=== PATIENT | male | born 1970 | race Caucasian/White ===

== ENCOUNTER 2024-10-11 13:17 | Observation (INO) | payer MEDICARE ==
--- NOTE | 2024-10-11 14:44 | ED ---
General Adult HPI - General Chief complaint: Recheck/Abnormal Lab/Rx Stated complaint: ETOH/Seizures Time Seen by Provider: 10/11/24 14:04 Source: patient, RN notes reviewed, old records reviewed Mode of arrival: EMS Limitations: no limitations - History of Present Illness Initial comments: 54 yo-year-old male history of alcohol abuse and remote history of alcohol withdrawal seizure presents from [facility] for evaluation. Patient is been sober for the past 13 hours. Patient was sent in with concern for alcohol withdrawal and known history of HIV requiring medical clearance for rehabilitation. Patient states he has been off HIV medication and has had nondetectable viral load. He follows with infectious disease in the [facility]. - Related Data Allergies Allergy/AdvReac Type Severity Reaction Status Date / Time No Known Allergies Allergy Verified 10/11/24 13:37 Review of Systems ROS Statement: Those systems with pertinent positive or pertinent negative responses have been documented in the HPI. ROS Other: All systems not noted in ROS Statement are negative. Past Medical History Additional Past Medical History / Comment(s): HIV, Hep B History of Any Multi-Drug Resistant Organisms: None Reported Past Surgical History: No Surgical Hx Reported Past Psychological History: Anxiety Smoking Status: Current every day smoker Past Alcohol Use History: Daily, Heavy Past Drug Use History: Marijuana General Exam Limitations: no limitations General appearance: alert, anxious Head exam: Present: atraumatic, normocephalic Eye exam: Present: PERRL ENT exam: Present: normal exam Neck exam: Present: normal inspection, tenderness. Absent: meningismus Respiratory exam: Present: normal lung sounds bilaterally. Absent: respiratory distress, wheezes Cardiovascular Exam: Present: normal rhythm, tachycardia GI/Abdominal exam: Present: soft. Absent: distended, tenderness, guarding Extremities exam: Present: normal inspection, normal capillary refill Neurological exam: Present: alert, oriented X3, CN II-XII intact. Absent: motor sensory deficit Psychiatric exam: Present: anxious Skin exam: Present: warm, dry, intact Course Vital Signs 10/11/24 13:33 Temperature 99.8 F H Pulse Rate 109 H Respiratory 20 Rate Blood Pressure 133/79 O2 Sat by Pulse 97 Oximetry Medical Decision Making - Medical Decision Making Was pt. sent in by a medical professional or institution (, PA, SCOURER, urgent care, hospital, or [facility]...) When possible be specific @ -No Did you speak to anyone other than the patient for history (EMS, parent, family, police, friend...)? What history was obtained from this source @ -No Did you review nursing and triage notes (agree or disagree)? Why? @ -I reviewed and agree with nursing and triage notes Were old charts reviewed (outside hosp., previous admission, EMS record, old EKG, old radiological studies, urgent care reports/EKG's, [facility] records)? Report findings @ -No old charts were reviewed Differential Diagnosis alcohol withdrawal seizure, delirium tremens EKG interpreted by me (3pts min.). @ -[Sinus tachycardia rate of 102, W[place] interval 152, QRS duration 90, QTc [address] segment elevation. X-rays interpreted by me (1pt min.). @ -None done CT interpreted by me (1pt min.). @ -None done U/S interpreted by me (1pt. min.). @ -None done What testing was considered but not performed or refused? (CT, X-rays, U/S, labs)? Why? @ -None What meds were considered but not given or refused? Why? @ -None Did you discuss the management of the patient with other professionals (professionals i.e. , PA, SCOURER, lab, RT, psych nurse, side door worker, family life counselor, teacher, corporate banking officer, caser)? Give summary @EMH Was smoking cessation discussed for >3mins.? @ -No Was critical care preformed (if so, how long)? @ -No Were there social determinants of health that impacted care today? How? (Homelessness, low income, unemployed, alcoholism, drug addiction, transportation, low edu. Level, literacy, decrease access to med. care, residential, rehab)? @ -No Was there de-escalation of care discussed even if they declined (Discuss DNR or withdrawal of care, Hospice)? DNR status @ -No What co-morbidities impacted this encounter? (DM, HTN, Smoking, COPD, CAD, Cancer, CVA, ARF, Chemo, Hep., AIDS, mental health diagnosis, sleep apnea, morbid obesity)? @Alcohol abuse, HIV Was patient admitted / discharged? Hospital course, mention meds given and route, prescriptions, significant lab abnormalities, going to OR and other pe rtinent info. @ -54-year-old male presenting with alcohol withdrawal remote history of alcohol withdrawal seizure. Patient is tremulous, tachycardic and hypertensive upon arrival. Patient started on a CIWA scale given Ativan in the emergency department. Patient had been seen at [facility] and sent to the emergency department with history of seizure and history of HIV. Patient states that they required evaluation by infectious disease to clear him for rehab. I did place consult to infectious disease for evaluation. Undiagnosed new problem with uncertain prognosis? @ -No Drug Therapy requiring intensive monitoring for toxicity (Heparin, Nitro, Insulin, Cardizem)? @ -No Were any procedures done? @ -No Diagnosis/symptom? @ -[Alcohol withdrawal Acute, or Chronic, or Acute on Chronic? @ -Acute Uncomplicated (without systemic symptoms) or Complicated (systemic symptoms)? @ -[default Side effects of treatment? @ -No Exacerbation, Progression, or Severe Exacerbation? @ -No Poses a threat to life or bodily function? How? (Chest pain, USA, OR, pneumonia, PE, COPD, DKA, ARF, appy, cholecystitis, CVA, Diverticulitis, Homicidal, Suicidal, threat to staff... and all critical care pts) @Yes, alcohol withdrawal, delirium tremens, seizure - Lab Data Result diagrams: 10/11/24 14:42 10/11/24 14:42 Lab Results 10/11/24 10/11/24 Range/Units 14:42 14:42 WBC 2.83 L (4.50-10.00) 10*3/uL RBC 4.45 (4.40-5.60) 10*6/uL Hgb 13.3 (13.0-17.0) g/dL Hct 38.3 L (39.6-50.0) % MCV 86.1 (80.0-97.0) fL MCH 29.9 (27.0-32.0) pg MCHC 34.7 (32.0-37.0) g/dL Plt Count 193 (140-440) 10*3/uL MPV 8.9 L (9.5-12.2) fL Immature Gran % (Auto) 0.7 % Neutrophils % 47.0 % Lymphocytes % 41.3 % Monocytes % 8.8 % Eosinophils % 0.4 % Basophils % 1.8 % Immature Gran # 0.02 (0.00-0.04) 10*3/uL Neutrophils # 1.33 L (1.80-7.70) 10*3/uL Lymphocytes # 1.17 (0.90-5.00) 10*3/uL Monocytes # 0.25 (0.20-1.00) 10*3/uL Eosinophils # 0.01 L (0.04-0.35) 10*3/uL Basophils # 0.05 (0.00-0.10) 10*3/uL Sodium 137 (137-145) mmol/L Potassium 4.4 (3.5-5.1) mmol/L Chloride 97 L (98-107) mmol/L Carbon Dioxide 25 (22-30) mmol/L Anion Gap 15 mmol/L BUN 13 (9-20) mg/dL Creatinine 0.49 L (0.66-1.25) mg/dL Est GFR (CKD-EPI)AfAm >90 (>60 ml/min/1.73 sqM) Est GFR (CKD-EPI)NonAf >90 (>60 ml/min/1.73 sqM) Glucose 91 (74-99) mg/dL Calcium 8.7 (8.4-10.2) mg/dL Magnesium 1.6 (1.6-2.3) mg/dL Total Bilirubin 0.6 (0.2-1.3) mg/dL AST 68 H (17-59) U/L ALT 46 (4-49) U/L Alkaline Phosphatase 98 (38-126) U/L Total Protein 7.5 (6.3-8.2) g/dL Albumin 4.3 (3.5-5.0) g/dL Disposition Clinical Impression: Alcohol withdrawal Disposition: ADMITTED IP TO THIS HOSP Condition: Stable Is patient prescribed a controlled substance at d/c from ED?: No Referrals: None,Stated [Primary Care Provider] - 1-2 days Time of Disposition: 15:32
[2024-10-11] MEDS: SODIUM CHLORIDE 0.9% 1,000 ML IV ONE (14:46)
[2024-10-11] MEDS: LORazepam 1 MG/0.5 ML VIAL IV STA (14:48)
[2024-10-11 14:49] LABS: Basophils # (A) 0.05 10*3/uL (0.00-0.10); Basophils % (A) 1.8 %; Eosinophils # (A) 0.01 10*3/uL (0.04-0.35); Eosinophils % (A) 0.4 %; HCT 38.3 % (39.6-50.0); HGB 13.3 g/dL (13.0-17.0); Lymphocytes # (A) 1.17 10*3/uL (0.90-5.00); Lymphocytes % (A) 41.3 %; MCH 29.9 pg (27.0-32.0); MCHC 34.7 g/dL (32.0-37.0); MCV 86.1 fL (80.0-97.0); Monocytes # (A) 0.25 10*3/uL (0.20-1.00); Monocytes % (A) 8.8 %; Neutrophils # (A) 1.33 10*3/uL (1.80-7.70); Neutrophils % (A) 47.0 %; Platelet Count 193 10*3/uL (140-440); RBC 4.45 10*6/uL (4.40-5.60); RDW 14.6 % (11.5-14.5); WBC 2.83 10*3/uL (4.50-10.00)
[2024-10-11 15:17] LABS: ALT 46 U/L (4-49); AST 68 U/L (17-59); African American GFR (CKD) >90 (>60 ml/min/1.73 sqM); Albumin 4.3 g/dL (3.5-5.0); Alkaline Phosphatase 98 U/L (38-126); Anion Gap 15 mmol/L; Blood Urea Nitrogen 13 mg/dL (9-20); Calcium 8.7 mg/dL (8.4-10.2); Carbon Dioxide 25 mmol/L (22-30); Chloride 97 mmol/L (98-107); Glucose 91 mg/dL (74-99); Magnesium 1.6 mg/dL (1.6-2.3); Non-African American GFR(CKD) >90 (>60 ml/min/1.73 sqM); Potassium 4.4 mmol/L (3.5-5.1); Sodium 137 mmol/L (137-145); Total Protein 7.5 g/dL (6.3-8.2)
[2024-10-11] MEDS ORDERED: NALOXONE 0.4 MG/ML 1 ML VIAL IV PRN (15:24)
[2024-10-11] MEDS: LORazepam 1 MG/0.5 ML VIAL IV PRN ×2 (15:43→19:59)
[2024-10-11] MEDS: SODIUM CHLORIDE 0.9% 1,000 ML IV SCH (15:45)
[2024-10-11] MEDS ORDERED: ONDANSETRON 4 MG/2 ML VIAL IVP PRN (19:44)
[2024-10-11] MEDS: NICOTINE 21MG/24HR PATCH TRANSDERM SCH (19:59)
[2024-10-11] MEDS: PANTOPRAZOLE 40 MG/10 ML VIAL IVP SCH (19:59)
--- NOTE | 2024-10-11 23:56 | P.CONS ---
History of Present Illness - Reason for Consult Consult date: 10/11/24 HIV clearance for rehab Requesting physician: David Chua - Chief Complaint Alcoholism/alcohol withdrawal x 1 day - History of Present Illness Patient is a 54-year-old male with a past medical history significant for HIV hepatitis B anxiety current everyday smoker as well as heavy drinker patient did have a history of HIV for many years and the patient has been on Biktarvy however the patient mentioned has not been taking it for the last 3 months as he seemed to have problems with his insurance and the patient mention he was not remembering to take his medication on a daily basis patient presented to [facility] for alcohol rehabilitation after being evaluated that facility patient was sent to [facility] to be evaluated for HIV and to make sure the patient is cleared for inpatient rehabilitation for his alcoholism patient currently denies having any fever or any chills but denies any headache or URI symptoms no chest pain shortness of breath or cough no nausea no vomiting no abdominal pain or any diarrhea on presentation the hospital he did have a low-grade fever of 99.884 white patient was mild tachycardic but not hypotensive or hypoxic patient did have a white count of 2.83 creatinine 0.49 electrolytes has been normal AST is elevated rest of the liver enzymes are normal patient has been admitted to hospital infectious disease was consulted regarding his HIV and clearance to go back to the [facility] for alcohol rehabilitation Review of Systems Positive point and negatives has been mentioned in the HPI, complete review of systems was performed and all other systems are negative Past Medical History Additional Past Medical History / Comment(s): HIV, Hep B History of Any Multi-Drug Resistant Organisms: None Reported Past Surgical History: No Surgical Hx Reported Past Psychological History: Anxiety Smoking Status: Current every day smoker Past Alcohol Use History: Daily, Heavy Past Drug Use History: Marijuana Medications and Allergies Home Medications Medication Instructions Recorded Confirmed Type No Known Home Medications 10/11/24 10/11/24 History Allergies Allergy/AdvReac Type Severity Reaction Status Date / Time No Known Allergies Allergy Verified 10/11/24 15:35 Physical Exam Vitals: Vital Signs Temp Pulse Resp BP Pulse Ox 10/11/24 15:42 98 20 130/86 98 10/11/24 13:33 99.8 F H 109 H 20 133/79 97 Intake and Output 10/11/24 10/11/2425 06:59 14:59 22:59 Other: Weight 65.771 kg GENERAL DESCRIPTION: Middle aged male lying in bed, no distress. No tachypnea or accessory muscle of respiration use. HEENT: Shows Pallor , no scleral icterus. Oral mucous membrane is dry. NECK: Trachea central, no thyromegaly. LUNGS: Unlabored breathing. Clear to auscultation anteriorly. No wheeze or crackle. HEART: S1, S2, regular rate and rhythm. No loud murmur ABDOMEN: Soft, no tenderness , guarding or rigidity, no organomegaly EXTREMITIES: No edema of feet. SKIN: No rash, no masses palpable. NEUROLOGICAL: The patient is awake, alert, oriented x3, mood and affect normal. Results CBC & Chem 7: 10/11/24 14:42 10/11/24 14:42 Labs: Abnormal Lab Results - Last 24 Hours (Table) 10/11/24 10/11/24 Range/Units 14:42 14:42 WBC 2.83 L (4.50-10.00) 10*3/uL Hct 38.3 L (39.6-50.0) % MPV 8.9 L (9.5-12.2) fL Neutrophils # 1.33 L (1.80-7.70) 10*3/uL Eosinophils # 0.01 L (0.04-0.35) 10*3/uL Chloride 97 L (98-107) mmol/L Creatinine 0.49 L (0.66-1.25) mg/dL AST 68 H (17-59) U/L Assessment and Plan (1) HIV disease Current Visit: Yes Status: Acute Code(s): B20 - HUMAN IMMUNODEFICIENCY VIRUS [HIV] DISEASE SNOMED Code(s): 45951916 (2) Noncompliance with medication regimen Current Visit: Yes Status: Acute Code(s): Z91.148 - PATIENT'S OTHER NONCOMPL WITH MEDS REGIMEN FOR OTHER REASON SNOMED Code(s): 259730537 Plan: 1patient is a 54-year-old male who did have history of HIV for many years and the patient has been on Biktarvy mention his last viral load was not d etected his CD4 count was 600 but that has been 6 months ago and the patient not been taking his medication for the last 3 months because of his alcoholism and keep on forgetting to take his medication now being sent from the rehab for clearance to continue with rehab and this patient being admitted there for alcohol withdrawal syndrome 2-patient did have a low-grade fever and tachycardia on admission for which we will check a chest x-ray and check CRP procalcitonin as well as influenza and RSV/COVID PCR if this workup is negative no further fever patient will be able to go back to the rehab for rehabilitation 3-we will also check a CD4 count and viral load however will not suggest starting the treatment until the patient is done with rehabilitation and has establish care back with his HIV physician We will follow on clinical condition and cultures to further adjust medication if needed Thank you for this consultation we will follow the patient along with you Dictation was produced using [employer] dictation software. please excuse any grammatical, word or spelling errors. Time with Patient: Greater than 30
[2024-10-12 02:31] VITALS: RESP 17
[2024-10-12 08:12] VITALS: BP 154/86; PULSE 83; TEMP 98
--- NOTE | 2024-10-12 08:28 | XR ---
EXAMINATION TYPE: XR chest 1V portable DATE OF EXAM: 10/12/2024 COMPARISON: None CLINICAL INDICATION: Male, 54 years old with history of HIV; TECHNIQUE: Single frontal view of the chest is obtained. FINDINGS: There is no focal air space opacity, pleural effusion, or pneumothorax seen. The cardiac silhouette size is within normal limits. The osseous structures are intact. IMPRESSION: No acute process. [facility], Workstation: MAXIM 10/12/2024 8:26 AM
[2024-10-12 08:41] LABS: Basophils # (A) 0.03 X 10*3/uL (0.00-0.10); Basophils % (A) 0.9 %; Eosinophils # (A) 0.13 X 10*3/uL (0.04-0.35); Eosinophils % (A) 3.9 %; HCT 35.2 % (39.6-50.0); HGB 11.6 g/dL (13.0-17.0); Immature Grans, Automated 0.60 %; Lymphocytes # (A) 1.22 X 10*3/uL (0.90-5.00); Lymphocytes % (A) 36.5 %; MCH 28.6 pg (27.0-32.0); MCHC 33.0 g/dL (32.0-37.0); MCV 86.7 FL (80.0-97.0); Monocytes # (A) 0.34 X 10*3/uL (0.20-1.00); Monocytes % (A) 10.2 %; NRBC Per 100 WBC 0 X 10*3/uL (0.00-0.01); Neutrophils # (A) 1.60 X 10*3/uL (1.80-7.70); Neutrophils % (A) 47.9 %; Platelet Count 176 X 10*3/uL (140-440); RBC 4.06 X 10*6/uL (4.40-5.60); RDW 14.6 % (11.5-14.5); WBC 3.34 X 10*3/uL (4.50-10.00)
[2024-10-12] MEDS: LORazepam 1 MG/0.5 ML VIAL IV PRN (10:16)
[2024-10-12] MEDS: THIAMINE 100 MG TAB PO SCH (10:16)
[2024-10-12 11:13] LABS: ALT 34 U/L (10-49); AST 49 U/L (14-35); Albumin 3.4 g/dL (3.8-4.9); Albumin/Globulin Ratio 1.36 Ratio (1.60-3.17); Alkaline Phosphatase 82 U/L (41-126); Anion Gap 12.90 mmol/L (4.00-12.00); BUN/Creat Ratio 16.67 Ratio (12.00-20.00); Blood Urea Nitrogen 10.0 mg/dL (9.0-27.0); Calcium 8.1 mg/dL (8.7-10.3); Carbon Dioxide 24.1 mmol/L (21.6-31.8); Chloride 99 mmol/L (96-109); Globulin 2.5 g/dL (1.6-3.3); Glucose 93 mg/dL (70-110); Potassium 4.3 mmol/L (3.5-5.5); Sodium 136 mmol/L (135-145); Total Protein 5.9 g/dL (6.2-8.2)
[2024-10-12 12:48] LABS: T Helper Cell (CD4) 440 cell/ul (443-1471); T Helper Cell (CD4) % 35 % (35-66); T Suppressor Cell (CD8) 541 cell/ul (190-832); T Suppressor Cell (CD8) % 43 % (9-37); T4/T8 Ratio (CD4:CD8) 0.8 (1.0-3.7)
--- NOTE | 2024-10-12 13:06 | P.HPIM ---
History of Present Illness Chief Complaint: HIV clearance for rehab History of present illness; 54-year-old male with significant past medical history of HIV, alcohol abuse and Suboxone dependence. Patient sent from [facility] for HIV clearance, patient has been off HIV medication for the last couple months on a vacation HIV doctor aware. Last drink was 48 hours ago previously he was drinking 1.2 L of liquor per day, patient reports feeling jittery but improved after 2 mg of Ativan IV. In the ER patient received chest x-ray and EKG both negative for acute pathology. He was admitted for management of alcohol dependence and clearance by ID consult Labs: WBC 3.34 Hgb 11.6 Plt 176 NA 137 K4.4 BUN 13 CR 0.49 Pro-Gregory 0.06 REVIEW OF SYSTEMS: As stated above in HPI. The rest of the 14-point review of systems is negative. PHYSICAL EXAMINATION: GENERAL: The patient is alert and oriented x3, not in any acute distress. Well developed, well nourished. HEENT: Pupils are round and equally reacting to light. EOMI. No scleral icterus. No conjunctival pallor. Normocephalic, atraumatic. CARDIOVASCULAR: S1 and S2 present. No murmurs, rubs, or gallops. PULMONARY: Chest is clear to auscultation b/l, no wheezing or crackles. ABDOMEN: Soft, nontender, nondistended, normoactive bowel sounds. No palpable organomegaly. MUSCULOSKELETAL: No joint swelling or deformity. EXTREMITIES: No cyanosis, clubbing, or pedal edema. NEUROLOGICAL: Gross neurological examination did not reveal any focal deficits. SKIN: No rashes. Assessment and Plan #Alcohol withdrawal CIWA protocol -Last CIWA was 16 -Patient received 3 mg of Ativan today - Seizure precautions #HIV: Long history, recently on medication holiday, here for ID eval - ID on consult for clearance - CD4/CD8, HIV RNA, -CRP, UA, quad screen DVT ppx: Ambulation GI ppx: Protonix CODE STATUS: Full code Dispo: Pending ID clearance Lefty Padilla DO PGY1 Dictation was produced using [employer] dictation software. please excuse any grammatical, word or spelling errors. Past Medical History Additional Past Medical History / Comment(s): HIV, Hep B History of Any Multi-Drug Resistant Organisms: None Reported Past Surgical History: No Surgical Hx Reported Past Psychological History: Anxiety Smoking Status: Current every day smoker Past Alcohol Use History: Daily, Heavy Past Drug Use History: Marijuana Medications and Allergies Home Medications Medication Instructions Recorded Confirmed Type No Known Home Medications 10/11/24 10/11/24 History Allergies Allergy/AdvReac Type Severity Reaction Status Date / Time No Known Allergies Allergy Verified 10/11/24 15:35 Physical Exam Vitals: Vital Signs Temp Pulse Pulse Resp BP BP Pulse Ox 10/12/24 07:40 83 17 10/12/24 07:10 98 F 83 17 154/86 96 10/12/24 01:17 98.0 F 82 17 113/66 95 10/11/24 19:34 82 17 10/11/24 19:12 98.0 F 98 18 141/78 95 10/11/24 18:37 98.5 F 100 20 126/92 98 10/11/24 15:42 98 20 130/86 98 10/11/24 13:33 99.8 F H 109 H 20 133/79 97 Intake and Output 10/11/24 10/12/24 10/12/24 22:59 06:59 14:59 Other: Voiding Method Toilet Toilet # Voids 3 Weight 65.771 kg Results CBC & Chem 7: 10/12/24 02:59 10/12/24 02:59 Labs: Abnormal Lab Results - Last 24 Hours (Table) 10/11/24 10/11/24 10/12/24 Range/Units 14:42 14:42 02:59 WBC 2.83 L 3.34 L (4.50-10.00) 10*3/uL RBC 4.06 L (4.40-5.60) X 10*6/uL Hgb 11.6 L (13.0-17.0) g/dL Hct 38.3 L 35.2 L (39.6-50.0) % RDW 14.6 H (11.5-14.5) % MPV 8.9 L 9.2 L (9.5-12.2) fL Neutrophils # 1.33 L 1.60 L (1.80-7.70) 10*3/uL Eosinophils # 0.01 L (0.04-0.35) 10*3/uL Chloride 97 L (98-107) mmol/L Creatinine 0.49 L (0.66-1.25) mg/dL AST 68 H (17-59) U/L Thrombosis Risk Factor Assmnt - Choose All That Apply Each Factor Represents 1 point: Age 41-60 years Other Risk Factors: No Other congenital or acquired thrombophilia - If yes, enter type in comment: No Thrombosis Risk Factor Assessment Total Risk Factor Score: 1 Thrombosis Risk Factor Assessment Level: Low Risk
--- NOTE | 2024-10-12 13:07 | P.DS ---
Providers Date of admission: 10/11/24 15:27 Attending physician: Lamin Arellano MD Consults: 10/11/24 15:24 Consult Physician Routine Consulting Provider: Lionel Webb Consult Reason/Comments: history of HIV, needs clearance for rehab Do you want consulting provider notified?: Yes Primary care physician: Stated None Hospital Course: Discharge Diagnosis: HIV Alcohol use disorder Suboxone dependence Hospital Course: 54-year-old male with significant past medical history of alcohol use disorder HIV presents for ID evaluation for [facility] admission. Patient has been sober for the last 48 hours previously drinking 1.2 L of vodka per day. States that he was previously taking an medication vacation, his primary care physician is aware of this. In the ER received chest x-ray and EKG both returned negative for acute pathology. While admitted he was seen and evaluated by ID and managed with CIWA protocol (total of 5 g of Ativan over the course of admission), he was evaluated for acute infection all test returned negative. HIV maintenance testing within normal limits. At time of discharge patient is hemodynamically stable and cleared to return to [facility] for rehabilitation. Pt seen and examined at bedside: Plans on going to discharge, seen by ID, withdrawal symptoms well controlled at this time Vital signs reveiwed and stable: General: non toxic, no distress, appears at stated age, normal weight Derm: no unusual rashes/lesions, warm Head: atraumatic, normocephalic, symmetric Eyes: EOMI, no lid lag, anicteric sclera, pupils equal round reactive to light ENT: Nose and ears atraumatic Neck: No cervical lymphadenopathy, trachea midline, supple Mouth: no lip lesion, mucus membranes moist Cardiovascular: S1S2 reg, no murmur, positive dorsalis pedis pulse bilateral, no edema Lungs: Decreased air entry bilaterally, no rhonchi, no rales, no accessory muscle use Abdominal: soft, nontender to palpation, no guarding Ext: muscle strength 5 out of 5 in all 4 extremities grossly, no gross muscle atrophy, no contractures, Neuro: CN II-XI grossly intact, no gross focal neuro deficits Psych: Alert, oriented, appropriate affect A total of 30 minutes were spent preparing this complex discarge summary. Patient was discharged on 10/12/24. Dr. Kristy MD I have performed a history and physical examination and medical decision making of this patient, discussed the same with the dictator, and agree with the dictators assessment and plan as written, documented as a scribe. Based on total visit time, I have performed more than 50% of this visit. Patient Condition at Discharge: Stable Plan - Discharge Summary Discharge Rx Participant: No New Discharge Prescriptions: No Action No Known Home Medications Discharge Medication List No Known Home Medications 10/11/24 [History] Follow up Appointment(s)/Referral(s): Ramu Ernandez III, MD [STAFF PHYSICIAN] - 1 Week Patient Instructions/Handouts: Alcohol Use Disorder (DC) Discharge Disposition: OTHER INSTITUTION NOT DEFINED
[2024-10-12] MEDS: LORazepam 1 MG TAB PO STA (14:37)
--- NOTE | 2024-10-12 15:12 | P.PN ---
Subjective Progress Note Date: 10/12/24 Principal diagnosis: Reason for follow-up is HIV Patient is a 54-year-old male with a past medical history significant for HIV hepatitis B anxiety current everyday smoker as well as heavy drinker patient did have a history of HIV for many years and the patient has been on Biktarvy however the patient mentioned has not been taking it for the last 3 months has been sent from [facility] for clearance for rehab as for his HIV. On today's evaluation that is 10/13/2023, patient did have a temperature of 98 F this morning and denies having any chills, patient is on room air and breathing comfortably no chest pain or cough, the patient did not have any nausea vomiting abdominal pain or any diarrhea patient mention feeling better and wishes to go to the rehab. Patient white count is 3.34 creatinine 0.6 CD4 count is 440 CRP less than 0.30 Objective - Vital Signs Vital signs: Vital Signs Temp 98 F 10/12/24 07:10 Pulse 83 10/12/24 07:40 Resp 17 10/12/24 07:40 BP 154/86 10/12/24 07:10 Pulse Ox 96 10/12/24 07:10 FiO2 Intake & Output 10/11/24 10/12/24 10/12/24 18:59 06:59 18:59 Weight 65.771 kg Other: Voiding Method Toilet Toilet # Voids 3 - Exam GENERAL DESCRIPTION: Middle-age male lying in bed in no distress RESPIRATORY SYSTEM: Unlabored breathing , decreased breath sounds at bases HEART: S1 S2 regular rate and rhythm , ABDOMEN: Soft , no tenderness EXTREMITIES: No edema feet - Labs CBC & Chem 7: 10/12/24 02:59 10/12/24 02:59 Labs: Abnormal Lab Results - Last 24 Hours (Table) 10/11/24 10/11/24 10/12/24 Range/Units 14:42 14:42 02:59 WBC 2.83 L 3.34 L (4.50-10.00) 10*3/uL RBC 4.06 L (4.40-5.60) X 10*6/uL Hgb 11.6 L (13.0-17.0) g/dL Hct 38.3 L 35.2 L (39.6-50.0) % RDW 14.6 H (11.5-14.5) % MPV 8.9 L 9.2 L (9.5-12.2) fL Neutrophils # 1.33 L 1.60 L (1.80-7.70) 10*3/uL Eosinophils # 0.01 L (0.04-0.35) 10*3/uL Chloride 97 L (98-107) mmol/L Anion Gap (4.00-12.00) mmol/L Creatinine 0.49 L (0.66-1.25) mg/dL Calcium (8.7-10.3) mg/dL AST 68 H (17-59) U/L Total Protein (6.2-8.2) g/dL Albumin (3.8-4.9) g/dL Albumin/Globulin Ratio (1.60-3.17) Ratio 10/12/24 Range/Units 02:59 WBC (4.50-10.00) 10*3/uL RBC (4.40-5.60) X 10*6/uL Hgb (13.0-17.0) g/dL Hct (39.6-50.0) % RDW (11.5-14.5) % MPV (9.5-12.2) fL Neutrophils # (1.80-7.70) 10*3/uL Eosinophils # (0.04-0.35) 10*3/uL Chloride (98-107) mmol/L Anion Gap 12.90 H (4.00-12.00) mmol/L Creatinine (0.66-1.25) mg/dL Calcium 8.1 L (8.7-10.3) mg/dL AST 49 H (17-59) U/L Total Protein 5.9 L (6.2-8.2) g/dL Albumin 3.4 L (3.8-4.9) g/dL Albumin/Globulin Ratio 1.36 L (1.60-3.17) Ratio Assessment and Plan (1) HIV disease Current Visit: Yes Status: Acute Code(s): B20 - HUMAN IMMUNODEFICIENCY VIRUS [HIV] DISEASE SNOMED Code(s): 79710794 (2) Noncompliance with medication regimen Current Visit: Yes Status: Acute Code(s): Z91.148 - PATIENT'S OTHER NONCOMPL WITH MEDS REGIMEN FOR OTHER REASON SNOMED Code(s): 336523101 Plan: 1patient is a 54-year-old male who did have history of HIV for many years and the patient has been on Biktarvy mention his last viral load was not detected his CD4 count was 600 but that has been 6 months ago and the patient n ot been taking his medication for the last 3 months because of his alcoholism and keep on forgetting to take his medication now being sent from the rehab for clearance to continue with rehab and this patient being admitted there for alcohol withdrawal syndrome 2-patient did have negative chest x-ray CRP is normal CD4 count is 440, there is no contra indication for patient to go to the drug rehabilitation and will need to follow-up with his ID physician for possible genotype and may be considerat ion for [place] if no resistance multiple question answered Dictation was produced using [employer] dictation software. please excuse any grammatical, word or spelling errors. Time with Patient: Less than 30
[2024-10-14 11:42] LABS: HIV-1 RNA DETECTED (Not detected)
== END 2024-10-12 15:37 | disposition other institution (70) ==
LOC: EC 13:17 → 4SSUR 15:27
PROVIDERS: ADMIT Internal Medicine; ATTEND Internal Medicine
DX: F10.239 Alcohol dependence with withdrawal, unspecified (principal); F41.9 Anxiety disorder, unspecified; B20 Human immunodeficiency virus [HIV] disease; Z91.148 Patient's other noncompliance with medication regimen for other reason; F11.20 Opioid dependence, uncomplicated; F17.200 Nicotine dependence, unspecified, uncomplicated
CPT/HCPCS: 96376 ×3; 96374 ×2; 96375; 96361; 99285; 36415; 93005; 87535; 80053 ×2; 86360; 83735; 85025 ×2; 86140; 84145; 71045; G0378 ×2; S4990; J2060 ×2; J2470

== ENCOUNTER 2024-10-13 12:11 | Emergency (ER) | payer MEDICARE ==
--- NOTE | 2024-10-13 12:58 | ED ---
General Adult HPI - General Stated complaint: ETOH Time Seen by Provider: 10/13/24 12:20 Source: patient, RN notes reviewed Limitations: no limitations - History of Present Illness Initial comments: Patient is a 54-year-old male present to the emergency department with concerns with alcohol intoxication. Patient states he does drink a lot. Patient states he may have drank in 2 of 1/5 s of alcohol today. Patient has no complaints otherwise. Patient admits to being drowsy. Patient denies any injury. No suicidal ideation. - Related Data Previous Rx's Medication Instructions Recorded chlordiazePOXIDE HCl [Librium] See Taper PO TID 3 Days #12 capsule 10/12/24 chlordiazePOXIDE HCl [Librium] See Taper PO TID 3 Days #9 capsule 10/12/24 Allergies Allergy/AdvReac Type Severity Reaction Status Date / Time No Known Allergies Allergy Verified 10/13/24 13:09 Review of Systems ROS Statement: Those systems with pertinent positive or pertinent negative responses have been documented in the HPI. ROS Other: All systems not noted in ROS Statement are negative. Constitutional: Denies: fever Eyes: Denies: eye pain Cardiovascular: Denies: chest pain Gastrointestinal: Denies: abdominal pain Past Medical History Additional Past Medical History / Comment(s): HIV, Hep B History of Any Multi-Drug Resistant Organisms: None Reported Past Surgical History: No Surgical Hx Reported Past Psychological History: Anxiety Smoking Status: Current every day smoker Past Alcohol Use History: Daily, Heavy Past Drug Use History: Marijuana General Exam Limitations: no limitations General appearance: in no apparent distress, other (Sleeping but arousable to voice) Head exam: Present: atraumatic Eye exam: Present: normal appearance, PERRL ENT exam: Present: normal oropharynx Neck exam: Absent: tenderness Respiratory exam: Present: normal lung sounds bilaterally Cardiovascular Exam: Present: regular rate, normal rhythm GI/Abdominal exam: Present: soft. Absent: tenderness Extremities exam: Present: normal inspection, full ROM. Absent: tenderness Neurological exam: Present: alert, CN II-XII intact. Absent: motor sensory deficit Psychiatric exam: Present: flat affect Skin exam: Present: normal color Course Vital Signs 10/13/24 10/13/24 13:09 14:05 Temperature 97.3 F L Pulse Rate 101 H 100 Respiratory 18 18 Rate Blood Pressure 103/79 108/79 O2 Sat by Pulse 93 L 98 Oximetry Medical Decision Making - Medical Decision Making Was pt. sent in by a medical professional or institution (, PA, PRIVATE TUTOR, urgent care, hospital, or residential...) When possible be specific @ -No Did you speak to anyone other than the patient for history (EMS, parent, family, police, friend...)? What history was obtained from this source @ -No Did you review nursing and triage notes (agree or disagree)? Why? @ -I reviewed and agree with nursing and triage notes Were old charts reviewed (outside hosp., previous admission, EMS record, old EKG, old radiological studies, urgent care reports/EKG's, residential records)? Report findings @ -No old charts were reviewed Differential Diagnosis (chest pain, altered mental status, abdominal pain women, abdominal pain men, vaginal bleeding, weakness, fever, dyspnea, syncope, headache, dizziness, GI bleed, back pain, seizure, CVA, palpatations, mental health, musculoskeletal)? @ -Differential Altered Mental Status: Hypoglycemia, DKA, hypercapnia, ETOH, overdose, CO poisoning, trauma, myxedema coma, HTN encephalopathy, infection, encephalitis, psychosis, intercranial hemorrhage, hepatic encephalopathy, meningitis, CVA, this is not meant to be an all-inclusive list EKG interpreted by me (3pts min.). @ -As above X-rays interpreted by me (1pt min.). @ -None done CT interpreted by me (1pt min.). @ -None done U/S interpreted by me (1pt. min.). @ -None done What testing was considered but not performed or refused? (CT, X-rays, U/S, labs)? Why? @ -None What meds were considered but not given or refused? Why? @ -None Did you discuss the management of the patient with other professionals (professionals i.e. , PA, PRIVATE TUTOR, lab, RT, psych nurse, social worker school, online publisher, teacher, gift officer, disease case manager rn)? Give summary @ -No Was smoking cessation discussed for >3mins.? @ -No Was critical care preformed (if so, how long)? @ -No Were there social determinants of health that impacted care today? How? (Homelessness, low income, unemployed, alcoholism, drug addiction, transportation, low edu. Level, literacy, decrease access to med. care, snf, re hab)? @ -No Was there de-escalation of care discussed even if they declined (Discuss DNR or withdrawal of care, Hospice)? DNR status @ -No What co-morbidities impacted this encounter? (DM, HTN, Smoking, COPD, CAD, Cancer, CVA, ARF, Chemo, Hep., AIDS, mental health diagnosis, sleep apnea, morbid obesity)? @ -Alcoholism Was patient admitted / discharged? Hospital course, mention meds given and ro [place], prescriptions, significant lab abnormalities, going to OR and other pertinent info. @ -Patient presents with alcohol intoxication. Patient has no complaints. After evaluation in the emergency department patient refuses to stay. Patient is alert and oriented x 3 and does demonstrate steady gait. Patient removed his IV and left. Undiagnosed new problem with uncertain prognosis? @ -No Drug Therapy requiring intensive monitoring for toxicity (Heparin, Nitro, Insulin, Cardizem)? @ -No Were any procedures done? @ -No Diagnosis/symptom? @ -Alcohol intoxication Acute, or Chronic, or Acute on Chronic? @ -Acute Uncomplicated (without systemic symptoms) or Complicated (systemic symptoms)? @ -Default Side effects of treatment? @ -No Exacerbation, Progression, or Severe Exacerbation? @ -No Poses a threat to life or bodily function? How? (Chest pain, [place], [place], pneumonia, PE, COPD, DKA, ARF, appy, cholecystitis, CVA, Diverticulitis, Homicidal, Suicidal, threat to staff... and all critical care pts) @ -No - Lab Data Result diagrams: 10/13/24 14:02 10/13/24 14:02 Lab Results 10/13/24 10/13/24 Range/Units 14:02 14:02 WBC 3.37 L (4.50-10.00) 10*3/uL RBC 4.91 (4.40-5.60) 10*6/uL Hgb 14.6 (13.0-17.0) g/dL Hct 42.5 (39.6-50.0) % MCV 86.6 (80.0-97.0) fL MCH 29.7 (27.0-32.0) pg MCHC 34.4 (32.0-37.0) g/dL Plt Count 179 (140-440) 10*3/uL MPV 9.1 L (9.5-12.2) fL Immature Gran % (Auto) 0.6 % Neutrophils % 61.7 % Lymphocytes % 27.9 % Monocytes % 5.6 % Eosinophils % 3.0 % Basophils % 1.2 % Immature Gran # 0.02 (0.00-0.04) 10*3/uL Neutrophils # 2.08 (1.80-7.70) 10*3/uL Lymphocytes # 0.94 (0.90-5.00) 10*3/uL Monocytes # 0.19 L (0.20-1.00) 10*3/uL Eosinophils # 0.10 (0.04-0.35) 10*3/uL Basophils # 0.04 (0.00-0.10) 10*3/uL Sodium 146 H (137-145) mmol/L Potassium 4.2 (3.5-5.1) mmol/L Chloride 105 (98-107) mmol/L Carbon Dioxide 27 (22-30) mmol/L Anion Gap 14 mmol/L BUN 4 L (9-20) mg/dL Creatinine 0.55 L (0.66-1.25) mg/dL Est GFR (CKD-EPI)AfAm >90 (>60 ml/min/1.73 sqM) Est GFR (CKD-EPI)NonAf >90 (>60 ml/min/1.73 sqM) Glucose 98 (74-99) mg/dL Calcium 9.7 (8.4-10.2) mg/dL Total Bilirubin 0.4 (0.2-1.3) mg/dL AST 118 H (17-59) U/L ALT 68 H (4-49) U/L Alkaline Phosphatase 100 (38-126) U/L Total Protein 8.1 (6.3-8.2) g/dL Albumin 4.6 (3.5-5.0) g/dL Serum Alcohol 236 H* mg/dL Disposition Clinical Impression: Alcoholic intoxication Disposition: HOME SELF-CARE Is patient prescribed a controlled substance at d/c from ED?: No Referrals: None,Stated [Primary Care Provider] - 1-2 days Time of Disposition: 14:51
[2024-10-13 13:14] VITALS: RESP 18; TEMP 97.3
[2024-10-13] MEDS: SODIUM CHLORIDE 0.9% 1,000 ML IV STA (14:03)
[2024-10-13 14:07] VITALS: BP 108/79; PULSE 100
[2024-10-13] MEDS: THIAMINE 100 MG/ML 2 ML VIAL IVP STA (14:17)
[2024-10-13 14:19] LABS: Basophils # (A) 0.04 10*3/uL (0.00-0.10); Basophils % (A) 1.2 %; Eosinophils # (A) 0.10 10*3/uL (0.04-0.35); Eosinophils % (A) 3.0 %; HCT 42.5 % (39.6-50.0); HGB 14.6 g/dL (13.0-17.0); Lymphocytes # (A) 0.94 10*3/uL (0.90-5.00); Lymphocytes % (A) 27.9 %; MCH 29.7 pg (27.0-32.0); MCHC 34.4 g/dL (32.0-37.0); MCV 86.6 fL (80.0-97.0); Monocytes # (A) 0.19 10*3/uL (0.20-1.00); Monocytes % (A) 5.6 %; Neutrophils # (A) 2.08 10*3/uL (1.80-7.70); Neutrophils % (A) 61.7 %; Platelet Count 179 10*3/uL (140-440); RBC 4.91 10*6/uL (4.40-5.60); RDW 14.5 % (11.5-14.5); WBC 3.37 10*3/uL (4.50-10.00)
[2024-10-13 14:30] LABS: ALT 68 U/L (4-49); AST 118 U/L (17-59); African American GFR (CKD) >90 (>60 ml/min/1.73 sqM); Albumin 4.6 g/dL (3.5-5.0); Alkaline Phosphatase 100 U/L (38-126); Anion Gap 14 mmol/L; Blood Urea Nitrogen 4 mg/dL (9-20); Calcium 9.7 mg/dL (8.4-10.2); Carbon Dioxide 27 mmol/L (22-30); Chloride 105 mmol/L (98-107); Glucose 98 mg/dL (74-99); Non-African American GFR(CKD) >90 (>60 ml/min/1.73 sqM); Potassium 4.2 mmol/L (3.5-5.1); Sodium 146 mmol/L (137-145); Total Protein 8.1 g/dL (6.3-8.2)
== END 2024-10-13 14:59 | disposition home or self-care (01) ==
LOC: EC 12:11
DX: F10.129 Alcohol abuse with intoxication, unspecified (principal); F17.200 Nicotine dependence, unspecified, uncomplicated; Y90.7 Blood alcohol level of 200-239 mg/100 ml
CPT/HCPCS: 36415; 80053; 85025; 99284; 96360; G0480; 80320